=== PATIENT | female | born 1990 | race Caucasian/White ===

== ENCOUNTER 2020-10-27 10:08 | Emergency (ER) | payer SELFPAY ==
[~2020-10-27] VITALS: Ht 160 cm; Wt 77.2 kg
--- NOTE | 2020-10-27 10:24 | PHYS DOC ---
Past History Past Medical History: No Pertinent History Adult General Chief Complaint Chief Complaint: SORE THROAT HPI HPI Patient is a 30-year-old female presenting for sore throat. Reports onset was 2 days prior without any known inciting event, trauma or concerning ingestion. Reports back of throat feels like sandpaper, p.o. intake makes worse, nothing known makes better. Reports she has had subjective fever and chills for which she has been taking ibuprofen with mild symptomatic relief. She has no medical issues, no known comorbid conditions, no immunocompromising conditions. States she has history of strep throat and feels this episode is similar to prior episodes. No rhinorrhea, cough, abdominal pain, urinary symptoms reported Review of Systems Review of Systems Fourteen body systems of review of systems have been reviewed. See HPI for pertinent positives and negative responses, other christian all other systems are negative, non-pertinent or non-contributory Physical Exam Physical Exam Constitutional: Well developed, well nourished, no acute distress, non-toxic appearance. Appears uncomfortable HENT: Normocephalic, atraumatic, bilateral external ears normal, oropharynx moist, patient has copious tonsillar exudates left worse than right without any phonation changes, tolerating secretions well, nose normal. Eyes: PERRLA, EOMI, conjunctiva normal, no discharge. Neck: Normal range of motion, no tenderness, supple, no stridor. Cervical anterior lymphadenopathy palpable Cardiovascular: Heart rate regular, sinus rhythm, no murmurs rubs or gallops Lungs & Thorax: Bilateral breath sounds clear to auscultation Abdomen: Bowel sounds normal, soft, no tenderness, no masses, no pulsatile masses. Nonsurgical abdomen, no peritoneal signs Skin: Warm, dry, no erythema, no rash. Back: No tenderness, no CVA tenderness. Extremities: No tenderness, no cyanosis, no clubbing, ROM intact, no edema. Neurologic: Alert and oriented X 3, grossly normal motor & sensory function, no focal deficits noted. Psychologic: Affect normal, judgement normal, mood normal. EKG EKG [] Radiology/Procedures Radiology/Procedures [] Heart Score C/O Chest Pain: No HEART Score for Chest Pain: HEART Score for Chest Pain Response (Comments) Value History Slighlty/Non-Suspicious 0 Age < 45 0 Risk Factors No Risk Factors 0 Total 0 Risk Factors: Risk Factors: DM, Current or recent (<one month) smoker, HTN, HLP, family history of CAD, obesity. Risk Scores: Risk Factors: DM, Current or recent (<one month) smoker, HTN, HLP, family history of CAD, obesity. Course & Med Decision Making Course & Med Decision Making Afebrile, vital signs stable. HPI and physical exam concerning for oropharyngeal pathology. Centor criteria 3 indicating 28 to 35% probability of strep pharyngitis. Rapid strep obtained and negative I reviewed entirety of ER work-up at length with patient. Patient does not have insurance, no primary care physician and has poor access to outpatient follow- up Joint decision between myself and patient to initiate treatment due to severity of oropharyngeal exudates present despite negative strep test. I did disclose this might be an acute presentation of more concerning pathology such as a peritonsillar abscess but based on clinical presentation, this is less likely. P.o. steroids and clindamycin given to patient due to prior history of penicillin allergy and tolerated well. Given no access to PCP for follow-up, strict return precautions discussed at length with good understanding by patient. All questions and concerns addressed prior to your departure Dragon Disclaimer Dragon Disclaimer This electronic medical record was generated, in whole or in part, using a voice recognition dictation system. Departure Departure: Impression: Primary Impression: Exudative tonsillitis Disposition: HOME / SELF CARE / HOMELESS Condition: STABLE Referrals: PCP,SAMANTHA (PCP) Additional Instructions: As discussed prior to ER departure, your vital signs and physical exam were nonconcerning for any emergent or surgical issues. Your strep test was negative. With all of this said, I did discuss concerning findings of exudates on bilateral tonsils with left being worse than right side which is consistent with your symptoms. As such, due to your lack of primary care physician access, joint decision was made to pursue aggressive treatment with steroids administered in ER and subsequent antibiotic prescription written. You were educated on the prescribed antibiotic. Please take this as scheduled to completion per bottle instructions. If any concerning signs or symptoms present prior to outpatient follow-up please do not hesitate to come back for repeat evaluation. It was a pleasure to take care of you and I wish you a speedy recovery Scripts Clindamycin Hcl (CLINDAMYCIN HCL) 300 Mg Capsule 1 CAP PO TID for STREP for 10 Days, #29 CAP Prov: RACHEL MANDEL DO 10/27/20 RACHEL MANDEL DO October 27, 2020 10:23
[2020-10-27] MEDS ORDERED: CLIN300C9 PO (10:35)
[2020-10-27] MEDS: DEXAMETHASONE SOD PHOS 10 MG/ML VIAL. PO ONE (10:43)
[2020-10-27] MEDS: CLINDAMYCIN HCL 150 MG CAPSULE PO ONE (10:43)
[2020-10-27 10:47] VITALS: BP 118/85
== END 2020-10-27 10:56 | disposition home or self-care (01) ==
LOC: ER 10:08
DX: J03.90 Acute tonsillitis, unspecified (principal); Z88.0 Allergy status to penicillin
CPT/HCPCS: 87070; 87880; 99283; J1100

== ENCOUNTER 2021-04-23 08:21 | Emergency (ER) | payer OTHER ==
[~2021-04-23] VITALS: Ht 160 cm; Wt 82.3 kg
[~2021-04-23 08:21] MED LIST: CLIN-95 PO
[2021-04-23] MEDS ORDERED: IV NORMAL SALINE 1,000ML 1,000 ML IV ONE (08:30)
[2021-04-23] MEDS ORDERED: ONDANSETRON PF 4 MG/2 ML VIAL. IVP ONE ×2 (08:45→11:45)
[2021-04-23] MEDS ORDERED: MORPHINE SULFATE 2 MG/ML DISP.SYRIN. IV ONE ×2 (09:00→11:45)
--- NOTE | 2021-04-23 09:05 | PHYS DOC ---
Past History Past Medical History: No Pertinent History Past Surgical History: No Surgical History Alcohol Use: Rarely General Adult EDM: Chief Complaint: FLANK PAIN HPI: HPI: 30-year-old female that is 4 months presents with left flank pain. She had sudden onset of flank pain early this morning. She has continued to have waves of crampy pain in this area as well as nausea. Patient has a history of kidney stones. She denies any falls or trauma. She has tried Tylenol at home and it is not controlling the pain enough. Review of Systems: Review of Systems: Constitutional: Denies fever or chills Eyes: Denies change in visual acuity HENT: Denies nasal congestion or sore throat Respiratory: Denies cough or shortness of breath Cardiovascular: Denies chest pain or edema GI: Nausea. Denies abdominal pain, vomiting, bloody stools or diarrhea : Denies dysuria Musculoskeletal: Left flank pain Integument: Denies rash Neurologic: Denies headache, focal weakness or sensory changes Endocrine: Denies polyuria or polydipsia Lymphatic: Denies swollen glands Psychiatric: Denies depression or anxiety Current Medications: Current Meds: Current Medications Medications (Trade) Dose Ordered Sig/Vira Start Time Stop Time Status Last Admin Dose Admin Morphine Sulfate (Morphine 2mg Syringe) 2 mg 1X ONCE 04/23/21 09:00 04/23/21 09:01 UNV Ondansetron HCl (Zofran) 4 mg 1X ONCE 04/23/21 08:45 04/23/21 08:46 UNV Sodium Chloride 1,000 ml @ 1,000 mls/hr 1X ONCE 04/23/21 08:30 04/23/21 09:29 Allergies: Allergies: Allergies Coded Allergies Type Severity Reaction Last Updated Verified amoxicillin Allergy Unknown 10/27/20 Yes Physical Exam: PE: Constitutional: Well developed, well nourished, no acute distress, non-toxic appearance. [] HENT: Normocephalic, atraumatic, bilateral external ears normal, oropharynx moist, no oral exudates, nose normal. [] Eyes: PERRLA, EOMI, conjunctiva normal, no discharge. [] Neck: Normal range of motion, no tenderness, supple, no stridor. [] Cardiovascular: Heart rate regular rhythm, no murmur [] Lungs & Thorax: Bilateral breath sounds clear to auscultation [] Abdomen: Bowel sounds normal, gravid uterus, no masses, no pulsatile masses. [] Skin: Warm, dry, no erythema, no rash. [] Back: No tenderness, left CVA tenderness. [] Extremities: No tenderness, no cyanosis, no clubbing, ROM intact, no edema. [] Neurologic: Alert and oriented X 3, normal motor function, normal sensory function, no focal deficits noted. [] Psychologic: Affect normal, judgement normal, mood normal. [] Current Patient Data: Vital Signs: Vital Signs Date Time Temp Pulse Resp B/P (MAP) Pulse Ox O2 Delivery O2 Flow Rate FiO2 04/23/21 08:21 98.2 95 18 122/83 (96) 100 Room Air EKG: EKG: [] Radiology/Procedures: Radiology/Procedures: [] Heart Score: C/O Chest Pain: N/A Risk Factors: Risk Factors: DM, Current or recent (<one month) smoker, HTN, HLP, family history of CAD, obesity. Risk Scores: Score 0 - 3: 2.5% MACE over next 6 weeks - Discharge Home Score 4 - 6: 20.3% MACE over next 6 weeks - Admit for Clinical Observation Score 7 - 10: 72.7% MACE over next 6 weeks - Early Invasive Strategies Course & Med Decision Making: Course & Med Decision Making Pertinent Labs and Imaging studies reviewed. (See chart for details) The patient does have elevated white count. Her urinalysis is significant for blood. Given her I have ordered a renal ultrasound. Renal ultrasound does not show hydronephrosis or obvious stone. The patient has been given 2 different doses of 2 mg of morphine for her pain. Her urinalysis also suggests urinary tract infection. The patient has an allergy to amoxicillin which includes sores and swelling of the throat. I will treat her UTI with azithromycin and give the first dose in the ED.. She is stable for discharge at this time. [] Reji Disclaimer: Reji Disclaimer: This electronic medical record was generated, in whole or in part, using a voice recognition dictation system. Departure Departure: Impression: Primary Impression: Kidney stone on left side Additional Impressions: UTI (urinary tract infection) Qualified Codes: N30.01 - Acute cystitis with hematuria Qualified Codes: Z3A.17 - 17 weeks gestation of Disposition: HOME / SELF CARE / HOMELESS Condition: STABLE Referrals: PCP,NO (PCP) Patient Instructions: Kidney Stones, [id number], - Urinary Tract Infection Scripts Hydrocodone/Acetaminophen (Hydrocodone-Acetamin 5-325 mg) 1 Each Tablet 1 EACH PO Q4-6HRS PRN for PAIN, #10 TAB Prov: NADIA OCONNOR DO 04/23/21 Azithromycin (AZITHROMYCIN TABLET) 250 Mg Tablet 250 MG PO DAILY for ANTI-BIOTIC for 4 Days, #4 TAB 0 Refills Prov: NADIA OCONNOR DO 04/23/21 NADIA OCONNOR DO Apr 23, 2021 09:05
[2021-04-23 09:23] LABS: BASO % 0 % (0-3); EOS % 0 % (0-3); HEMATOCRIT 36.6 % (36.0-47.0); HEMOGLOBIN 12.4 g/dL (12.0-15.5); LYMPH # 1.2 x10^3/uL (1.0-4.8); LYMPH % 10 % (24-48); MEAN CORPUSCULAR HEMOGLOBIN 31 pg (25-35); MEAN CORPUSCULAR HGB CONC 34 g/dL (31-37); MEAN CORPUSCULAR VOLUME 91 fL (79-100); MONO # 0.3 x10^3/uL (0.0-1.1); MONO % 3 % (0-9); NEUT # 10.2 x10^3uL (1.8-7.7); NEUT % 87 % (31-73); PLATELET COUNT 120 x10^3/uL (140-400); RED BLOOD COUNT 4.04 x10^6/uL (3.50-5.40); RED CELL DISTRIBUTION WIDTH 13.4 % (11.5-14.5); WHITE BLOOD COUNT 11.7 x10^3/uL (4.0-11.0)
[2021-04-23 09:24] LABS: CALCIUM 9.1 mg/dL (8.5-10.1); CREATININE 0.8 mg/dL (0.6-1.0); GFR 85.4
[2021-04-23 09:31] LABS: ALBUMIN/GLOBULIN RATIO 0.7 (1.0-1.7); TOTAL BILIRUBIN 0.2 mg/dL (0.2-1.0); TOTAL PROTEIN 7.2 g/dL (6.4-8.2)
[2021-04-23 11:18] LABS: BILIRUBIN,URINE NEG (NEG); CLARITY,URINE CLOUDY; COLOR,URINE YELLOW; GLUCOSE,URINE NEG (NEG)
[2021-04-23 11:19] LABS: BACTERIA,URINE FEW /HPF (0-FEW); NITRITE,URINE NEG (NEG); SQUAMOUS EPITHELIAL CELL,UR MANY /LPF; UROBILINOGEN,URINE 0.2 mg/dL (0.2 mg/dL)
[2021-04-23 11:47] VITALS: BP 139/67
--- NOTE | 2021-04-23 12:19 | RAD ---
EXAM: Renal sonogram. HISTORY: Left flank pain. TECHNIQUE: Sonographic imaging of the left kidney and bladder was performed. COMPARISON: None. FINDINGS: The left kidney is normal in size. No solid or cystic renal lesion is seen. There is no hyd ronephrosis. There is no convincing nephrolithiasis. The prevoid bladder volume is 8 cc. The ureteral jets are both seen. IMPRESSION: Unremarkable sonographic imaging of the left kidney and urinary bladder. Electronically signed by: Vika Fuentes MD (04/23/2021 12:16 PM) [id number]
[2021-04-23] MEDS ORDERED: AZIT250T6 PO (12:38)
[2021-04-23] MEDS ORDERED: HYDR-2759 PO (12:38)
[2021-04-23] MEDS ORDERED: AZITHROMYCIN 250 MG TABLET. PO ONE (12:45)
== END 2021-04-23 12:50 | disposition home or self-care (01) ==
LOC: ER 08:21
DX: O26.832 Pregnancy related renal disease, second trimester (principal); N20.0 Calculus of kidney; O23.42 Unspecified infection of urinary tract in pregnancy, second trimester; Z3A.17 17 weeks gestation of pregnancy; Z87.442 Personal history of urinary calculi; Z88.1 Allergy status to other antibiotic agents
CPT/HCPCS: 36415; 76775; 80053; 81001; 85025; 87086; 96361; 96374; 96375; 96376; 99284; J2270; J2405; J7030

== ENCOUNTER 2021-08-18 16:56 | Emergency (ER) | payer OTHER ==
[~2021-08-18] VITALS: Ht 162.6 cm; Wt 79.6 kg
[~2021-08-18 16:56] MED LIST changes: +AZIT250T6 PO; +HYDR-2759 PO
[2021-08-18] MEDS ORDERED: ONDANSETRON ODT 4 MG TAB.RAPDIS PO ONE (17:15)
[2021-08-18] MEDS ORDERED: IV NORMAL SALINE 1,000ML 1,000 ML IV ONE ×2 (18:00→19:30)
[2021-08-18 18:08] LABS: BASO % 0 % (0-3); EOS % 0 % (0-3); HEMATOCRIT 33.7 % (36.0-47.0); HEMOGLOBIN 11.3 g/dL (12.0-15.5); LYMPH # 1.2 x10^3/uL (1.0-4.8); LYMPH % 15 % (24-48); MEAN CORPUSCULAR HEMOGLOBIN 30 pg (25-35); MEAN CORPUSCULAR HGB CONC 33 g/dL (31-37); MEAN CORPUSCULAR VOLUME 89 fL (79-100); MONO # 0.8 x10^3/uL (0.0-1.1); MONO % 11 % (0-9); NEUT % 74 % (31-73); PLATELET COUNT 130 x10^3/uL (140-400); RED BLOOD COUNT 3.77 x10^6/uL (3.50-5.40); RED CELL DISTRIBUTION WIDTH 12.9 % (11.5-14.5)
[2021-08-18 18:10] LABS: CALCIUM 8.9 mg/dL (8.5-10.1); CREATININE 0.7 mg/dL (0.6-1.0); GFR 98.9; POTASSIUM 3.5 mmol/L (3.5-5.1)
[2021-08-18 18:16] LABS: ALBUMIN 2.7 g/dL (3.4-5.0); ALBUMIN/GLOBULIN RATIO 0.6 (1.0-1.7); MAGNESIUM 1.9 mg/dL (1.8-2.4); TOTAL BILIRUBIN 0.4 mg/dL (0.2-1.0); TOTAL PROTEIN 7.3 g/dL (6.4-8.2)
--- NOTE | 2021-08-18 18:53 | PHYS DOC ---
Past History Past Medical History: No Pertinent History (JOLLY WILKINS APRN) Past Surgical History: No Surgical History (JOLLY WILKINS APRN) Alcohol Use: Rarely (JOLLY WILKINS APRN) General Adult EDM: Chief Complaint: NAUSEA/VOMITING/DIARRHEA HPI: HPI: Patient is a 31-year-old female who presents with nausea and vomiting for the last 4 days. Decreased appetite. Denies fevers. Patient states that she is 8 months . Patient is still feeling the baby move. Denies abdominal pain. No vaginal bleeding. No abnormal discharge or odor. Denies medical history. (JOLLY WILKINS APRN) Review of Systems: Review of Systems: ROS At least 10 ROS systems have been reviewed and are negative except as documented in the HPI. General: Negative except as outlined in HPI above. Skin: Negative except as outlined in HPI above. HEENT: Negative except as outlined in HPI above. Neck: Negative except as outlined in HPI above. Respiratory: Negative except as outlined in HPI above.. Cardiovascular: Negative except as outlined in HPI above. Abdomen: Negative except as outlined in HPI above. : Negative except as outlined in HPI above. Back/MSK: Negative except as outlined in HPI above. Neuro: Negative except as outlined in HPI above. Psych: Negative except as outlined in HPI above. (JOLLY WILKINS APRN) Current Medications: Current Meds: Current Medications Medications (Trade) Dose Ordered Sig/Vira Start Time Stop Time Status Last Admin Dose Admin Ondansetron HCl (Zofran Odt) 4 mg 1X ONCE 08/18/21 17:15 08/18/21 17:16 DC Sodium Chloride 1,000 ml @ 1,000 mls/hr 1X ONCE 08/18/21 18:00 08/18/21 18:59 08/18/21 17:44 1,000 MLS/HR (JOLLY WILKINS APRN) Allergies: Allergies: Allergies Coded Allergies Type Severity Reaction Last Updated Verified amoxicillin Allergy Unknown 10/27/20 Yes (JOLLY WILKINS APRN) Physical Exam: PE: Constitutional: Well developed, well nourished, no acute distress, non-toxic appearance. [] HENT: Normocephalic, atraumatic, bilateral external ears normal, oropharynx moist, no oral exudates, nose normal. [] Eyes: PERRLA, conjunctiva normal, no discharge. [] Neck: Normal range of motion, no tenderness, supple, no stridor. [] Cardiovascular:Heart rate regular rhythm, no murmur [] Lungs & Thorax: Bilateral breath sounds clear to auscultation [] Abdomen: Bowel sounds normal, soft, no tenderness Skin: Warm, dry, no erythema, no rash. [] Back: No tenderness, no CVA tenderness. [] Extremities: No tenderness, no cyanosis, no clubbing, ROM intact, no edema. [] Neurologic: Alert and oriented X 3, normal motor function, normal sensory function, no focal deficits noted. [] Psychologic: Affect normal, judgement normal, mood normal. [] (JOLLY WILKINS APRN) Current Patient Data: Labs: Laboratory Tests Test 08/18/21 17:30 White Blood Count 8.0 x10^3/uL (4.0-11.0) Red Blood Count 3.77 x10^6/uL (3.50-5.40) Hemoglobin 11.3 g/dL (12.0-15.5) L Hematocrit 33.7 % (36.0-47.0) L Mean Corpuscular Volume 89 fL (79-100) Mean Corpuscular Hemoglobin 30 pg (25-35) Mean Corpuscular Hemoglobin Concent 33 g/dL (31-37) Red Cell Distribution Width 12.9 % (11.5-14.5) Platelet Count 130 x10^3/uL (140-400) L Neutrophils (%) (Auto) 74 % (31-73) H Lymphocytes (%) (Auto) 15 % (24-48) L Monocytes (%) (Auto) 11 % (0-9) H Eosinophils (%) (Auto) 0 % (0-3) Basophils (%) (Auto) 0 % (0-3) Neutrophils # (Auto) 6.0 x10^3uL (1.8-7.7) Lymphocytes # (Auto) 1.2 x10^3/uL (1.0-4.8) Monocytes # (Auto) 0.8 x10^3/uL (0.0-1.1) Eosinophils # (Auto) 0.0 x10^3/uL (0.0-0.7) Basophils # (Auto) 0.0 x10^3/uL (0.0-0.2) Sodium Level 136 mmol/L (136-145) Potassium Level 3.5 mmol/L (3.5-5.1) Chloride Level 101 mmol/L (98-107) Carbon Dioxide Level 25 mmol/L (21-32) Anion Gap 10 (6-14) Blood Urea Nitrogen 10 mg/dL (7-20) Creatinine 0.7 mg/dL (0.6-1.0) Estimated GFR (Cockcroft-Gault) 98.9 BUN/Creatinine Ratio 14 (6-20) Glucose Level 76 mg/dL (70-99) Calcium Level 8.9 mg/dL (8.5-10.1) Magnesium Level 1.9 mg/dL (1.8-2.4) Total Bilirubin 0.4 mg/dL (0.2-1.0) Aspartate Amino Transferase (AST) 13 U/L (15-37) L Alanine Aminotransferase (ALT) 14 U/L (14-59) Alkaline Phosphatase 91 U/L (46-116) Total Protein 7.3 g/dL (6.4-8.2) Albumin 2.7 g/dL (3.4-5.0) L Albumin/Globulin Ratio 0.6 (1.0-1.7) L Vital Signs: Vital Signs Date Time Temp Pulse Resp B/P (MAP) Pulse Ox O2 Delivery O2 Flow Rate FiO2 08/18/21 17:17 98.1 99 20 104/72 (83) 99 Room Air (JOLLY WILKINS APRN) EKG: EKG: [] (JOLLY WILKINS APRN) Radiology/Procedures: Radiology/Procedures: [] (JOLLY WILKINS APRN) Heart Score: C/O Chest Pain: No Risk Factors: Risk Factors: DM, Current or recent (<one month) smoker, HTN, HLP, family history of CAD, obesity. Risk Scores: Score 0 - 3: 2.5% MACE over next 6 weeks - Discharge Home Score 4 - 6: 20.3% MACE over next 6 weeks - Admit for Clinical Observation Score 7 - 10: 72.7% MACE over next 6 weeks - Early Invasive Strategies (JOLLY WILKINS APRN) Course & Med Decision Making: Course & Med Decision Making Pertinent Labs and Imaging studies reviewed. (See chart for details) [] 22-year-old female presents with nausea and vomiting for last 4 days. Patient is 8 months . heart tones were obtained, 150s. Mom still feels baby moving. Patient has been receiving care. Zofran given for nausea. Fluids given. UA positive for leuks, WBCs. Patient started on Keflex. Sent home with a starter pack of Zofran. Follow-up with [facility]CAR[facility]OLDER. Discussed return precautions. (JOLLY WILKINS APRN) Reji Disclaimer: Reji Disclaimer: This electronic medical record was generated, in whole or in part, using a voice recognition dictation system. (JOLLY WILKINS APRN) Departure Departure: Impression: Primary Impression: Nausea & vomiting Qualified Codes: R11.2 - Nausea with vomiting, unspecified Additional Impression: UTI (urinary tract infection) Qualified Codes: N30.00 - Acute cystitis without hematuria Disposition: HOME / SELF CARE / HOMELESS Condition: STABLE Referrals: PCP,NO (PCP) Patient Instructions: Nausea and Vomiting, [id number] Additional Instructions: Follow-up with MASCAR[facility] MOLDER on Friday for further management. Make sure that you are taking antibiotics to treat UTI. I gave your first dose here. Also giving you Zofran to take home to help with symptoms. EMERGENCY DEPARTMENT GENERAL DISCHARGE INSTRUCTIONS Thank you for coming to [facility] (ED) today and trusting us with you care. We trust that you had a positivie experience in our Emergency Department. If you wish to speak to the department management, you may call the director at [phone]. YOUR FOLLOW UP INSTRUCTIONS ARE FOLLOWS: 1. Do you have a private Doctor? If you do not have a private doctor, please ask for a resource list of physicians or clinics that may be able to assist you with follow up care. 2. The Emergency Physician has interpreted your x-rays. The X-Ray specialist will also review them. If there is a change in the findings, you will be notified in 48 hours when at all possible. 3. A lab test or culture has been done, your results will be reviewed and you will be notified if you need a change in treatment. ADDITIONAL INSTRUCTIONS AND INFORMATION: 1. Your care today has been supervised by a physician who is specially trained in emergency care. Many problems require more than one evaluation for a complete diagnosis and treatment. We recommend that you schedule your follow up appointment as recommended to ensure complete treatment of you illness or injury. If you are unable to obtain follow up care and continue to have a problem, or if your condition worsens, we recommend that you return to the ED. 2. We are not able to safely determine your condition over the phone nor are we able to give sound medical advice over the phone. For these safety reasons, if you call for medical advice we will ask you to come to the ED for further evaluation. 3. If you have any questions regarding these discharge instructions please call the ED at [phone]. SAFETY INFORMATION: In the interest of safety, wellness, and injury prevention; we encourage you to wear your sealbelt, if you smoke; quite smoking, and we encourage family to use a protective helmet for bicycling and other sporting events that present an increased risk for head injury. IF YOUR SYMPTOMS WORSEN OR NEW SYMPTOMS DEVELOP, OR YOU HAVE CONCERNS ABOUT YOUR CONDITION; OR IF YOUR CONDITION WORSENS WHILE YOU ARE WAITING FOR YOUR FOLLOW UP APPOINTMENT; EITHER CONTACT YOUR PRIMARY CARE DOCTOR, THE PHYSICIAN WHOSE NAME AND NUMBER YOU WERE GIVEN, OR RETURN TO THE ED IMMEDIATELY. Scripts Cephalexin (CEPHALEXIN) 500 Mg Tablet 1 TAB PO BID for uti for 5 Days, #10 TAB Prov: JOLLY WILKINS APRN 08/18/21 Attending Signature Attending Signature I have participated in the care of this patient and I have reviewed and agree with all pertinent clinical information above including history, exam, and recommendations. (AMERICA MARIE MD) Dragon Disclaimer This chart was dictated in whole or in part using Voice Recognition software in a busy, high-work load, and often noisy Emergency Department environment. It may contain unintended and wholly unrecognized errors or omissions. (AMERICA MARIE MD) JOLLY WILKINS APRN Aug 18, 2021 18:53 AMERICA MARIE MD Aug 20, 2021 01:39
[2021-08-18 19:10] LABS: U PREG PATIENT POSITIVE (NEG)
[2021-08-18] MEDS ORDERED: CYCLOPENTOLATE 1% OPTH SOLUTION 2ML BOTTLE. OD ONE (19:15)
[2021-08-18] MEDS ORDERED: GENTAMICIN 0.3% OPHTH SOLUTION 5ML BOTTLE. OD ONE (19:15)
[2021-08-18 19:18] LABS: CLARITY,URINE CLEAR; COLOR,URINE YELLOW; GLUCOSE,URINE NEG (NEG); NITRITE,URINE NEG (NEG); UROBILINOGEN,URINE 0.2 mg/dL (0.2 mg/dL)
[2021-08-18 19:19] LABS: BACTERIA,URINE MOD /HPF (0-FEW); SQUAMOUS EPITHELIAL CELL,UR MANY /LPF
[2021-08-18] MEDS ORDERED: ONDANSETRON PF 4 MG/2 ML VIAL. ONE (19:19)
[2021-08-18] MEDS ORDERED: ONDANSETRON PF 4 MG/2 ML VIAL. IVP ONE (19:30)
[2021-08-18] MEDS ORDERED: CEPH500T PO (19:38)
[2021-08-18] MEDS ORDERED: CEPHALEXIN 250 MG CAPSULE PO ONE (20:00)
[2021-08-18] MEDS ORDERED: ONDANSETRON 4MG ODT 4TABLET STARTPACK. PO ONE (20:00)
[2021-08-18 20:23] VITALS: BP 115/81
== END 2021-08-18 20:25 | disposition home or self-care (01) ==
LOC: ER 16:56
DX: O23.43 Unspecified infection of urinary tract in pregnancy, third trimester (principal); N39.0 Urinary tract infection, site not specified; Z3A.32 32 weeks gestation of pregnancy; Z88.1 Allergy status to other antibiotic agents
CPT/HCPCS: 36415; 80053; 81001; 81025; 83735; 85025; 87070; 87086; 87880; 96361; 96374; 99284; J2405; J7030; Q0162